=== PATIENT | male | born 1975 ===

== ENCOUNTER 2024-09-21 06:15 | Day surgery (SDC) | payer OTHER, SELFPAY | END 2024-09-21 10:10 | disposition home or self-care (01) | LOC: GI 06:15 | PROVIDERS: ATTENDING PHYSICIAN Internal Medicine Gastroenterology | DX: R13.10 Dysphagia, unspecified (principal); K22.2 Esophageal obstruction; K31.89 Other diseases of stomach and duodenum; K29.50 Unspecified chronic gastritis without bleeding | CPT/HCPCS: 43239; 88305; 88342 ==